=== PATIENT | female | born 1995 | race Caucasian/White ===

== ENCOUNTER 2018-04-30 05:38 | Emergency (ER) | payer OTHER ==
[2018-04-30 06:27] VITALS: BP 118/69
[2018-04-30] MEDS ORDERED: ACETAMINOPHEN 325 MG TABLET PO ONE (07:26)
[2018-04-30] MEDS ORDERED: IBUPROFEN 600 MG TABLET PO ONE (07:26)
--- NOTE | 2018-04-30 07:26 | ER Document Report ---
HPI - HPI Time Seen by Provider: 04/30/18 06:59 Pain Level: 5 Context: Patient is a 22-year-old female who presents the emergency department with a chief complaint of left ear pain. Her pain started this morning at 5:00 in the morning. She states, "it feels like my eardrum ruptured." She was diagnosed with the flu 2 days ago and otitis externa of the right ear. She has not taken any medication for the pain. She feels that the pain is radiating down her jaw towards her forehead. She has no other past medical history. - REPRODUCTIVE Reproductive: DENIES: : Past Medical History - General Information source: Patient - Social History Smoking Status: Unknown if Ever Smoked Family History: Reviewed & Not Pertinent Vertical Provider Document - INFECTION CONTROL TRAVEL OUTSIDE OF THE [place] IN LAST 30 DAYS: No - HEENT HEENT: Atraumatic, Tympanic Membrane Red - Exudate noted, Tympanic Membrane Bulging. negative: Pharyngeal Exudate - NECK Neck: Normal Inspection - RESPIRATORY Respiratory: Breath Sounds Normal - CARDIOVASCULAR Cardiovascular: Regular Rate, Regular Rhythm - MUSCULOSKELETAL/EXTREMETIES Musculoskeletal/Extremeties: FROM - NEURO Level of Consciousness: Awake, Alert, Appropriate - DERM Integumentary: Warm, Dry Course - Re-evaluation Re-evalutation: 04/30/18 07:27 Patient's physical exam is consistent with otitis media of the left side. She does have purulent drainage behind her tympanic membrane. She also has erythema to her tympanic membrane. I do not suspect mastoiditis. Verbal discharge instructions were given to the patient. They verbalized understanding. They are stable for discharge. - Vital Signs Vital signs: Temp Pulse Resp BP Pulse Ox 97.7 F 86 18 118/69 98 04/30/18 06:25 04/30/18 06:25 04/30/18 06:25 04/30/18 06:25 04/30/18 06:25 Discharge - Discharge Clinical Impression: Otitis media Qualifiers: Otitis media type: mucoid Chronicity: acute Laterality: left Qualified Code(s): H65.112 - Acute and subacute allergic otitis media (mucoid) (sanguinous) (serous), left ear Condition: Stable Disposition: HOME, SELF-CARE Additional Instructions: You have been diagnosed as having an ear infection. Please take amoxicillin t wice daily for 10 days. Please continue to take your medications even if you feel better. Follow-up with your primary care provider as needed. You can take 1000 mg of acetaminophen and 600 mg of ibuprofen every 6 hours as needed for your pain or fever. If your symptoms are worse, are unable to hear, or have any symptoms that are worrisome to you, please return to the emergency department. Prescriptions: RX: Amoxicillin Trihydrate [Amoxil 875 mg Tablet] 1 tab PO BID #20 tablet Referrals: RAE GALINDO [Primary Care Provider] - Follow up as needed
== END 2018-04-30 07:40 | disposition home or self-care (01) ==
LOC: ER 05:38
DX: H65.112 Acute and subacute allergic otitis media (mucoid) (sanguinous) (serous), left ear (principal); H92.02 Otalgia, left ear
CPT/HCPCS: 99282

== ENCOUNTER 2019-08-27 10:05 | Emergency (ER) | payer OTHER ==
[2019-08-27 10:10] VITALS: BP 114/62
[2019-08-27] MEDS ORDERED: NORMAL SALINE 1000 ML 1,000 ML IV ONE (10:14)
--- NOTE | 2019-08-27 10:14 | ER Document Report ---
ED Medical Screen (RME) - General Chief Complaint: Flank Pain Stated Complaint: FLANK PAIN/BACK SWELLING/PAINFUL URINATION Time Seen by Provider: 08/27/19 10:10 Primary Care Provider: RAE GALINDO [Primary Care Provider] - Follow up as needed Mode of Arrival: Ambulatory Information source: Patient Notes: 23-year-old female patient presenting to the emergency department chief complaint of dysuria and low back pain on the left side. Patient denies any fevers. She is 14 weeks . She reports nausea with vomiting but states that she has had vomiting during this however it has increased over the last 24 hours. She has not vomited today. No CVA tenderness on the left side. Tachycardic. I have greeted and performed a rapid initial assessment of this patient. A comprehensive ED assessment and evaluation of the patient, analysis of test results and completion of the medical decision making process will be conducted by additional ED providers. I have specifically instructed the patient or family members with the patient to immediately return to any nursing staff should anything change in the patient's condition or with their chief complaint. TRAVEL OUTSIDE OF THE [place] IN LAST 30 DAYS: No - Related Data Allergies/Adverse Reactions: No Known Allergies Allergy (Unverified 04/30/18 05:46) Past Medical History Neurological Medical History: Reports: Hx Migraine Renal/ Medical History: Denies: Hx Peritoneal Dialysis Physical Exam - Vital signs Vitals: Temp Pulse Resp BP Pulse Ox 98.9 F 113 H 20 114/62 99 08/27/19 10:09 08/27/19 10:09 08/27/19 10:09 08/27/19 10:09 08/27/19 10:09 Course - Vital Signs Vital signs: Temp Pulse Resp BP Pulse Ox 98.9 F 113 H 20 114/62 99 08/27/19 10:10 08/27/19 10:09 08/27/19 10:09 08/27/19 10:09 08/27/19 10:09 Doctor's Discharge - Discharge Referrals: RAE GALINDO [Primary Care Provider] - Follow up as needed
[2019-08-27] MEDS ORDERED: METOCLOPRAMIDE HCL INJ/PF 10 MG/2 ML SDV IV ONE (10:42)
--- NOTE | 2019-08-27 10:45 | ER Document Report ---
ED GI/ - General Chief Complaint: Flank Pain Stated Complaint: FLANK PAIN/BACK SWELLING/PAINFUL URINATION Time Seen by Provider: 08/27/19 10:10 Primary Care Provider: RAE GALINDO [Primary Care Provider] - Follow up as needed Mode of Arrival: Ambulatory Information source: Patient Notes: 23-year-old female with no previous medical problems who states that she is 13 weeks 6 days presents to the emergency room with intermittent left flank pain that started yesterday. Denies any trauma or injury. was able to sleep last night without difficulty woke up this morning is having worsening left flank and left side pain. Denies any weakness, also complains of worsening nausea and vomiting. States she had a normal ultrasound about 2 and half weeks ago at the [facility]. She denies fevers. States has pain after she finishes urination but not before or during. She denies any vaginal bleeding, vaginal discharge. She is a 3 para 1 with 1 . Took Tylenol about 1 hour prior to arrival with some relief of symptoms. TRAVEL OUTSIDE OF THE [place] IN LAST 30 DAYS: No - Related Data Allergies/Adverse Reactions: No Known Allergies Allergy (Unverified 04/30/18 05:46) Home Medications: wellbutrin Past Medical History - General Information source: Patient - Social History Smoking Status: Never Smoker Chew tobacco use (# tins/day): No Frequency of alcohol use: None Drug Abuse: None Family History: Reviewed & Not Pertinent Patient has homicidal ideation: No Neurological Medical History: Reports: Hx Migraine Renal/ Medical History: Denies: Hx Peritoneal Dialysis Review of Systems - Review of Systems Constitutional: No symptoms reported Cardiovascular: No symptoms reported Respiratory: No symptoms reported Gastrointestinal: No symptoms reported Genitourinary: Flank pain Female Genitourinary: . denies: Vaginal discharge, Vaginal bleeding Skin: No symptoms reported -: Yes All other systems reviewed and negative Physical Exam - Vital signs Vitals: Temp Pulse Resp BP Pulse Ox 98.9 F 113 H 20 114/62 99 08/27/19 10:09 08/27/19 10:09 08/27/19 10:09 08/27/19 10:08/27/19 10:09 - General General appearance: Appears well, Alert In distress: Mild - Respiratory Respiratory status: No respiratory distress Chest status: Nontender Breath sounds: Normal Chest palpation: Normal - Cardiovascular Rhythm: Tachycardia Heart sounds: Normal auscultation Murmur: No - Abdominal Inspection: Normal Distension: No distension Bowel sounds: Normal Tenderness: Tender - Over the suprapubic region there is mild tenderness on palpation. No: Guarding, Rebound Organomegaly: No organomegaly - Back Back: CVA tenderness - Right-sided. No: Vertebra tenderness - Neurological Neuro grossly intact: Yes Cognition: Normal Orientation: AAOx4 [place] Coma Scale Eye Opening: Spontaneous [place] Coma Scale Verbal: Oriented [place] Coma Scale Motor: Obeys Commands [place] Coma Scale Total: 15 Speech: Normal Motor strength normal: LUE, RUE, LLE, RLE Sensory: Normal - Skin Skin Temperature: Warm Skin Moisture: Dry Skin Color: Normal Course - Re-evaluation Re-evalutation: 08/27/19 10:44 Notified by nursing staff that patient is refusing her IV, IV fluids and IV medications. Spoke with the patient and counseled patient on the necessity for IV fluids, IV medications since patient is unable to tolerate anything p.o. and is having severe left flank pain she was counseled that she would need fluids and antiemetics as well as ultrasound. Patient is agreeable to IV, IV fluids, IV medications, ultrasounds. 08/27/19 11:20 Notified by nursing staff that patient is not in her room, ultrasounds looking for patient as well. Nurse asked staff members in triage and they state that they saw the patiently. Patient did not notify anyone that she was leaving. - Vital Signs Vital signs: Temp Pulse Resp BP Pulse Ox 98.9 F 113 H 20 114/62 99 08/27/19 10:10 08/27/19 10:09 08/27/19 10:09 08/27/19 10:09 08/27/19 10:09 - Laboratory Result Diagrams: 08/27/19 10:15 08/27/19 10:15 Laboratory results interpreted by me: 08/27/19 08/27/19 08/27/19 10:15 10:15 10:15 WBC 10.7 H Lymph % (Auto) 6.3 L Absolute Neuts (auto) 9.3 H Seg Neutrophils % 86.4 H Sodium 131.6 L Glucose 122 H AST 39 H Serum HCG, Qual POSITIVE H Urine Protein Urine Ketones 08/27/19 10:15 WBC Lymph % (Auto) Absolute Neuts (auto) Seg Neutrophils % Sodium Glucose AST Serum HCG, Qual Urine Protein 30 H Urine Ketones 20 H Discharge - Discharge Clinical Impression: Flank pain in patient, Eloped from emergency department Disposition: ELOPED Referrals: RAE GALINDO [Primary Care Provider] - Follow up as needed
[2019-08-27 10:46] LABS: ABSOLUTE LYMPHOCYTES (AUTO) 0.7 10^3/uL (0.5-4.7); ABSOLUTE MONOCYTES (AUTO) 0.7 10^3/uL (0.1-1.4); ABSOLUTE NEUT (AUTO) 9.3 10^3/uL (1.7-8.2); BASOPHILS % (AUTO) 0.1 % (0-2); EOSINOPHILS % (AUTO) 0.4 % (0-6); HEMATOCRIT 37.1 % (36.0-47.0); HEMOGLOBIN 13.2 g/dL (12.0-15.5); LYMPHOCYTES % (AUTO) 6.3 % (13-45); MEAN CORPUSCULAR HEMOGLOBIN 31.7 pg (27.0-33.4); MEAN CORPUSCULAR HGB CONC 35.6 g/dL (32.0-36.0); MEAN CORPUSCULAR VOLUME 89 fl (80-97); MONOCYTES % (AUTO) 6.8 % (3-13); PLATELET COUNT 216 10^3/uL (150-450); RED BLOOD COUNT 4.17 10^6/uL (3.72-5.28); RED CELL DISTRIBUTION WIDTH 13.3 % (11.5-14.0); SEGMENTED NEUTROPHILS % (AUTO) 86.4 % (42-78); TOTAL CELLS COUNTED % (AUTO) 100 %; WHITE BLOOD COUNT 10.7 10^3/uL (4.0-10.5)
[2019-08-27 10:54] LABS: APPEARANCE,URINE CLOUDY; BILIRUBIN,URINE NEGATIVE (NEGATIVE); COLOR,URINE YELLOW; GLUCOSE, URINE NEGATIVE (NEGATIVE); KETONES,URINE 20 mg/dL (NEGATIVE); LEUKOCYTE ESTERASE,URINE NEGATIVE (NEGATIVE); NITRITE,URINE NEGATIVE (NEGATIVE); PROTEIN,URINE 30 mg/dL (NEGATIVE); URINE SPECIFIC GRAVITY 1.016; UROBILINOGEN,URINE NEGATIVE mg/dL (<2.0)
[2019-08-27 11:03] LABS: ALBUMIN 3.7 g/dL (3.5-5.0); ALKALINE PHOSPHATASE 86 U/L (38-126); ANION GAP 8 (5-19); ASPARTATE AMINO TRANSFERASE 39 U/L (14-36); BILIRUBIN,TOTAL 0.8 mg/dL (0.2-1.3); BLOOD UREA NITROGEN 13 mg/dL (7-20); CALCIUM 8.9 mg/dL (8.4-10.2); CARBON DIOXIDE 26 mmol/L (22-30); CHLORIDE 98 mmol/L (98-107); GLUCOSE 122 mg/dL (75-110); POTASSIUM 3.9 mmol/L (3.6-5.0); TOTAL PROTEIN 6.8 g/dL (6.3-8.2)
== END 2019-08-27 11:19 | disposition left against medical advice (07) ==
LOC: ER 10:05
DX: O26.891 Other specified pregnancy related conditions, first trimester (principal); R10.9 Unspecified abdominal pain; R30.0 Dysuria; R00.0 Tachycardia, unspecified; R10.819 Abdominal tenderness, unspecified site; Z3A.13 13 weeks gestation of pregnancy; Z79.899 Other long term (current) drug therapy; Z53.20 Procedure and treatment not carried out because of patient's decision for unspecified reasons
CPT/HCPCS: 36415; 80053; 81001; 83690; 84703; 85025; 87086; 87088; 87186; 99281

== ENCOUNTER → 2019-11-07 | Outpatient (CLI) | payer SELFPAY ==
--- NOTE | 2019-11-07 16:14 | RADIOLOGY REPORT (SQ) ---
EXAM DESCRIPTION: U/S OB 14+ TRNABD 1GES W/O DOP IMAGES COMPLETED DATE/TIME: 11/07/2019 3:56 pm REASON FOR STUDY: Z34.82 ENCOUNTER FOR SUPRVSN OF NORMAL , SECOND TRIMESTER Z34.82 ENCOUNT ER FOR SUPRVSN OF NORMAL , SECOND TRI COMPARISON: None. TECHNIQUE: Static and Dynamic grayscale imaging performed of gravid uterus using transabdominal appr oach. Additional selected color Doppler and spectral images recorded. All stored on PACS. LIMITATIONS: None. FINDINGS: FETUSES SEEN:1 EGA: 24 weeks 1 day Calculated using BPD,FL,HC,AC documented on images. No discrepancy with clinical dates. CUAUHTEMOC: 02/26/2020 EFW: 667 grams PERCENTILE: 46 LVP: 4.4 x 10.5 cm PLACENTA: Anterior. GRADE: I PRESENTATION: Cephalic. ANATOMY: HEART RATE: 143 beats per minute. FOUR CHAMBER HEART: Visualized. THREE VESSEL CORD: Yes. CORD INSERTION: Visualized. KIDNEYS AND BLADDER: Visualized. Appear normal. STOMACH: Visualized. Appears normal. SPINE: Normal as visualized. BRAIN AND LATERAL VENTRICLES: Visualized. Appear normal. OTHER: No other significant finding. MATERNAL ADNEXA: Normal. CERVICAL LENGTH: 4.0 cm. Closed. OTHER: No other significant finding. IMPRESSION: LIVING INTRAUTERINE . ESTIMATED GESTATIONAL AGE 24 weeks 1 day. NO VISUALIZED ANOMALIES. Trimester of : Second trimester - 13 weeks 1 day to 27 weeks 6 days. TECHNICAL DOCUMENTATION: JOB ID: [id number] 2010 [employer]- All Rights Reserved Reading location - IP/workstation name: [email or web address]
== END ==
LOC: RAD 15:27
PROVIDERS: ATTEND Midwife
DX: Z34.82 Encounter for supervision of other normal pregnancy, second trimester (principal)
CPT/HCPCS: 76805

== ENCOUNTER 2020-01-18 14:56 | Outpatient (CLI) | payer SELFPAY ==
[2020-01-18 16:09] LABS: BACTERIA (WET MOUNT) 4+ BACTERIA SEEN; EPITHELIALS (WET MOUNT) 3+ EPITHELIALS SEEN; T.VAGINALIS (WET MOUNT) NO TRICHOMONAS SEEN; WBCS (WET MOUNT) 1+ WBCS SEEN; YEAST (WET MOUNT) BUDDING YEAST SEEN
[2020-01-18 16:47] LABS: APPEARANCE,URINE CLEAR; BILIRUBIN,URINE NEGATIVE (NEGATIVE); COLOR,URINE YELLOW; GLUCOSE, URINE NEGATIVE (NEGATIVE); KETONES,URINE NEGATIVE (NEGATIVE); LEUKOCYTE ESTERASE,URINE NEGATIVE (NEGATIVE); NITRITE,URINE NEGATIVE (NEGATIVE); PROTEIN,URINE NEGATIVE (NEGATIVE); URINE SPECIFIC GRAVITY 1.006; UROBILINOGEN,URINE NEGATIVE mg/dL (<2.0)
[2020-01-18 17:08] LABS: URINE BARBITURATES SCREEN NEGATIVE; URINE BENZODIAZEPINES SCREEN NEGATIVE; URINE COCAINE SCREEN NEGATIVE; URINE MARIJUANA (THC) SCREEN NEGATIVE; URINE METHADONE SCREEN NEGATIVE; URINE PHENCYCLIDINE SCREEN NEGATIVE
[2020-01-18 17:13] LABS: URINE AMPHETAMINES SCREEN UNCONFIRMED POSITIVE
[2020-01-18 17:41] LABS: CHLAM PCR NOT DETECTED (NOT DETECT)
--- NOTE | 2020-01-18 19:48 | Non Stress Test Report ---
Non Stress Test Datetime Report Generated by CPN: 01/18/2020 19:48 DEMOGRAPHIC EGA NST: 34.3 INDICATION Indication for Study (NST) Other: Provider Order, IUP 34.3 VITAL SIGNS Temperature - NST: 97.8 RESP - NST: 18 MONITORING Monitor Explained: Monitor Explained; Test Explained; Patient Verbalized Understanding Time on Monitor: 01/18/2020 16:19 Time off Monitor: 01/18/2020 16:56 NST Duration: 37 NST INTERVENTIONS NST Interventions: None Physician Notified NST: Dr. Roman BABY A: [id number] BABY A Movement : Present Contraction Frequency : None FHR Baseline : 125 Accelerations : 15X15 Decelerations : None Variability : Moderate 6-25bpm NST Review: Meets Criteria for Reactive NST NST Review and Verified By : Teagan Noyola RNC NST Results: Reactive NST REPORT Report Trigger: Send Report
== END 2020-01-18 18:00 | disposition home or self-care (01) ==
LOC: LC 14:56
PROVIDERS: ATTEND Obstetrics & Gynecology
DX: O98.813 Other maternal infectious and parasitic diseases complicating pregnancy, third trimester (principal); B37.9 Candidiasis, unspecified; O99.283 Endocrine, nutritional and metabolic diseases complicating pregnancy, third trimester; E86.0 Dehydration; Z3A.34 34 weeks gestation of pregnancy
CPT/HCPCS: 59025; 36415; 87210; 81001; 87081; 80307 ×2; 87491; 87591; G0480

== ENCOUNTER 2020-01-25 01:07 | Inpatient (IN) | payer SELFPAY ==
[2020-01-25] MEDS ORDERED: MISOPROSTOL 0.2 MG TABLET ONE (01:13)
[2020-01-25] MEDS ORDERED: OXYTOCIN 10 UNIT/ML VIAL ONE (01:13)
[2020-01-25] MEDS ORDERED: OXYTOCIN/0.9 % SODIUM CHLORIDE 0 UNIT/0 ML RTUINJ ONE (01:13)
[2020-01-25] MEDS ORDERED: LIDOCAINE 1% INJ-PF (10 MG/ML) 30 ML SDV ONE (01:13)
[2020-01-25] MEDS ORDERED: PROMETHAZINE HCL 25 MG SUPP.RECT PR PRN (01:33)
[2020-01-25] MEDS ORDERED: PROMETHAZINE HCL INJ 25 MG/1 ML VIAL IV PRN (01:33)
[2020-01-25] MEDS ORDERED: MAGNESIUM HYDROXIDE SUSP 30 ML UDCUP PO PRN (01:33)
[2020-01-25] MEDS ORDERED: GLYCERIN/WITCH HAZEL LEAF 1 EACH MED..WIPE TP PRN (01:33)
[2020-01-25] MEDS ORDERED: MEASLES,MUMPS&RUBELLA VACC/PF 0.5 ML VIAL SUBCUT PRN (01:33)
[2020-01-25] MEDS ORDERED: PSEUDOEPHEDRINE HCL 30 MG TABLET PO PRN (01:33)
[2020-01-25] MEDS ORDERED: NA PHOS,M-B/NA PHOS,DI-BA (ADULT) 133 ML ENEMA PR PRN (01:33)
[2020-01-25] MEDS ORDERED: ACETAMINOPHEN 325 MG TABLET PO PRN (01:33)
[2020-01-25] MEDS ORDERED: OXYTOCIN/0.9 % SODIUM CHLORIDE 30 UNIT/500 ML RTUINJ IV PRN (01:33)
[2020-01-25] MEDS ORDERED: DIBUCAINE 1% OINTMENT 28 GM TP PRN (01:33)
[2020-01-25] MEDS ORDERED: BENZOCAINE/MENTHOL AEROSOL SPRAY 56 ML TOP PRN (01:33)
[2020-01-25] MEDS ORDERED: ZOLPIDEM TARTRATE 5 MG TABLET PO PRN (01:33)
[2020-01-25] MEDS ORDERED: ACETAMINOPHEN 650 MG SUPP.RECT PR PRN (01:33)
[2020-01-25] MEDS ORDERED: DIPH/PERTUSS(ACELL)/TETANUS VAC/PF 0.5 ML SYR (>=10YO) IM PRN (01:33)
[2020-01-25] MEDS ORDERED: PROMETHAZINE HCL 25 MG TABLET PO PRN (01:33)
[2020-01-25] MEDS ORDERED: DIPHENHYDRAMINE HCL 25 MG CAPSULE PO PRN (01:33)
[2020-01-25] MEDS ORDERED: ACETAMINOPHEN WITH CODEINE #3 TABLET PO PRN ×2 (01:33)
--- NOTE | 2020-01-25 01:46 | Admission Physical ---
Datetime Report Generated by CPN: 01/25/2020 01:46 CURRENT ADMISSION Hx Assessment: The History has been Reviewed and is Current Chief Complaint: Uterine Contractions; Suspected Ruptured Membranes Chief Complaint Other: at 35.3 wks EGA in active labor with SROM at 0115 complicated by opiate dependence and substance abuse in Admit Impression : , Intrauterine ; Active Labor; Ruptured Membranes Admit Plan: Admit to Unit; Initiate Labor Protocol; Initiate Labor Protocol ALLERGIES Medication Allergies: No Known Allergies (04/30/2018) OBSTETRICAL HISTORY EDC: 02/26/2020 00:00 : 2 Para: 1 Term: 1 : 0 SAB: 0 IAB: 0 Ectopic: 0 Livin Cesareans: 0 VBACs: 0 Multiple Births: 0 SEE RECORDS Other Illicit Drugs: Yes Illicit Drug Comments: Used Heroin today PHYSICAL EXAM General: Normal HEENT: Normal Neurologic: Normal Thyroid: Normal Heart: Normal Lungs: Normal Breast: Normal Back: Normal Abdomen: Normal Genitourinary Exam: Normal Extremities: Normal DTRs: Normal Pelvic Type: Adequate Vital Signs: Reviewed VAGINAL EXAM Dilatation: 10 Effacement: 100 Station: 2 MEMBRANES Membranes: Intact FETUS A EGA: 35.3 Monitoring: External US FHR- Baseline: 130 Variability: Moderate 6-25bpm Accelerations: 15X15 Decelerations: None FHR Category: Category I Presentation: Vertex Admit Comment: at 35.3 wks EGA in active labor with SROM at 0115 complicated by opiate dependence and substance abuse in -Admit to LDR -RUptured in ER, clear -Reports heroine use early today. UDS, Hep C, Hep B and HIV pending -GBS negative -Hx one prior -Anticipate precipitous -Since no time for IV insertion have Pitocin 10mg IM available for post deliveryand will avoid IV unless needed INFORMED CONSENT Informed Consent Obtained: Vaginal Delivery; Vacuum/Forceps Assist; Risks, Benefits and Alternatives Discussed Signature: with User ID: Roscoe : with User ID: Roscoe
[2020-01-25 02:09] LABS: ABSOLUTE EOSINOPHILS # (AUTO) 0.2 10^3/uL (0.0-0.6); ABSOLUTE LYMPHOCYTES (AUTO) 1.6 10^3/uL (0.5-4.7); ABSOLUTE MONOCYTES (AUTO) 1.1 10^3/uL (0.1-1.4); ABSOLUTE NEUT (AUTO) 10.5 10^3/uL (1.7-8.2); BASOPHILS % (AUTO) 0.2 % (0-2); EOSINOPHILS % (AUTO) 1.2 % (0-6); HEMATOCRIT 37.4 % (36.0-47.0); HEMOGLOBIN 13.1 g/dL (12.0-15.5); LYMPHOCYTES % (AUTO) 12.2 % (13-45); MEAN CORPUSCULAR HGB CONC 35.2 g/dL (32.0-36.0); MEAN CORPUSCULAR VOLUME 91 fl (80-97); PLATELET COUNT 259 10^3/uL (150-450); RED CELL DISTRIBUTION WIDTH 14.5 % (11.5-14.0); SEGMENTED NEUTROPHILS % (AUTO) 78.4 % (42-78); TOTAL CELLS COUNTED % (AUTO) 100 %; WHITE BLOOD COUNT 13.4 10^3/uL (4.0-10.5)
--- NOTE | 2020-01-25 02:38 | Birth Certificate Data ---
Cert Data Datetime Report Generated by CPN: 01/25/2020 02:38 CERTIFICATE DATA 47a. Care: No (01/18/2020 15:31:Mady Bridges RN) 48a. Number of Prev Live Births: 1 (01/18/2020 15:31:Mady Bridges RN) 48b. Now Livin (01/18/2020 15:31:Bonnie Pugh RN) 48c. Live Births Now : 0 (01/18/2020 15:31:QS system process) 48e. Losses: 0 (01/18/2020 15:31:Mady Bridges RN) RISK FACTORS IN THIS 49c. Previous Births: 0 (01/18/2020 15:31:Mady Cyrus, RN) 49f. Previous Cesareans: 0 (01/18/2020 15:31:Mady Barbiehefka, RN) Mother's Height 50b. Height Inches: 64 (01/18/2020 15:30:QS system process) Mother's Weight 51b. Weight at Delivery (lbs): 143 (01/18/2020 15:30:QS system process) Infections Present/Treated Results this Hospital Visit : Negative (01/18/2020 15:31:Mady Bridges RN) Results this Hospital Visit: Negative (01/18/2020 15:31:Mady Bridges RN) Onset of Labor 56a. PROM >12 Hrs: 0.27 (01/18/2020 15:31:QS system process) 56b. Precipitous Labor <3 Hrs: 2 (01/18/2020 15:31:QS system process) 56c. Prolonged Labor > 20 Hrs: 2 (01/18/2020 15:31:QS system process) 57a. Induction of Labor: N/A (01/18/2020 15:31:Mady Bridges RN) 57c. Non-Vertex Presentation A: Vertex (01/18/2020 15:31:Mady Bridges RN) 57d. Steroids - Lung Mat: None (01/18/2020 15:31:Mady Bridges RN) 57d. Steroids - Lung Mat: Not Applicable (01/18/2020 15:31:Mady Bridges RN) 57f. Mat [place] or Temp >100.4: 98.9 (01/18/2020 15:31:Sadia Wolfe RN) 57g. Moderate/Heavy Meconium: Moderate Meconium (01/18/2020 15:31:Sadia Wolfe RN) 57h. Intolerance of Labor: N/A (01/18/2020 15:31:Mady Bridges RN) 57i. Epidural/Spinal Anesthesia: None (01/18/2020 15:31:Mady Bridges RN) Method of Delivery 58a. Forceps - Unsuccessful A: N/A (01/18/2020 15:31:Mayd Bridges RN) 58b. Vacuum - Unsuccessful A: N/A (01/18/2020 15:31:Mady Bridges RN) 58c. Presentation at 58c. Presentation at - A : Vertex (01/18/2020 15:31:Mady Bridges RN) 58c. Presentation at - A : N/A (01/18/2020 15:31:Mady Bridges RN) 58c. Presentation at - A : Cephalic (01/18/2020 15:31:Mady Bridges RN) Final Route and Method of Del 58d. Baby A Route/Delivery: Vaginal (01/18/2020 15:31:Mady Bridges RN) 58e. Trial of Labor Attempted: No (01/18/2020 15:31:Mady Bridges RN) 58e. Trial of Labor Attempted A: N/A (01/18/2020 15:31:Mady Bridges RN) 58e. Trial of Labor Attempted B: N/A (01/18/2020 15:31:Mady Bridges RN) Maternal Morbidity 59b. 3rd or 4th Degree Lacs: None (01/18/2020 15:31:Mady Bridges RN) Birthweight Baby A: 2462 (01/18/2020 15:31:Sadia Wolfe RN) 60a. Pounds : 5 (01/18/2020 15:31:QS system process) 60b. Ounces: 7 (01/18/2020 15:31:QS system process) 61. GA at Delivery Baby A: 35.3 (01/18/2020 15:31:Mady Bridges RN) : Late - 34- 36.6 Weeks (01/18/2020 15:31:QS system process) 62a. 5 Minute Baby A: 9 (01/18/2020 15:31:QS system process)
--- NOTE | 2020-01-25 02:38 | Delivery Summary ---
Del Sum A-C Datetime Report Generated by CPN: 01/25/2020 02:38 DELIVERY PERSONNEL DELIVERY PERSONNEL: [id number] Delivery Doctor:: Kaity Roman MD Labor and Delivery Nurse:: Sadia Wolfe RNmedical representative Nurse:: Mady Bridges RN Nursery Nurse:: Guera Chow RN MSN Nursery Nurse:: Penny Clay RN Middle [employer] Band Teacher/CLINICAL CARE LEADER: Danika Manley, ST MATERNAL INFORMATION Delivery Anesthesia: None Medications After Delivery: Pitocin 10 Units IM Delivery QBL: 100 Maternal Complications: Precipitous Labor (<3hrs); Premature Rupture of Membranes; Other Complication Details: Drug use, no care Provider Comments: Called to patients room as she was complete/+2 with urge to push.Patient pushed through 2-3 contractions and delivered a viable male infant over an intact perineum. He was vigorously crying at delivery. After doubly clamping cord and cutting-infant placed skin to skin. Both stable. LABOR SUMMARY EDC: 02/26/2020 00:00 No. Babies in Womb: 1 Attempted: No Labor Anesthesia: None LABOR INFORMATION Reason for Induction: Not Applicable Onset of Labor: 01/24/2020 22:48 Complete Dilatation: 01/25/2020 01:28 Oxytocin: N/A Group B Beta Strep: 1 NO GROUP B STREPTOCOCCUS RECOVERED Antibiotics # of Doses: n/a Name of Antibiotic Given: n/a Steroids Given: None Reason Steroids Not Administered: Not Applicable MEMBRANES Membranes Rupture Method: Spontaneous Rupture of Membranes: 01/25/2020 01:04 Length of Rupture (hr): 0.27 Amniotic Fluid Color: Moderate Meconium Amniotic Fluid Amount: Large Amniotic Fluid Odor: Normal STAGES OF LABOR Stage 1 hr: 2 Stage 1 min: 40 Stage 2 hr: 0 Stage 2 min: -8 Stage 3 hr: 0 Stage 3 min: 8 Total Time in Labor hr: 2 Total Time in Labor min: 40 VAGINAL DELIVERY Episiotomy: None Laceration #1: None Laceration Extension #1: N/A Laceration Repair: Not Applicable Sponge Count Correct: N/A Sharps Count Correct: N/A CSECTION DELIVERY Primary Indication: N/A CSection Incision: N/A BABY A INFORMATION Delivery Date/Time: 01/25/2020 01:20 Method of Delivery: Vaginal Nurse Controlled Delivery: No Born in Route : No : N/A Forceps: N/A Vacuum Extraction: N/A Shoulder Dystocia : No PRESENTATION/POSITION BABY A Presentation: Cephalic Cephalic Presentation: Vertex Vertex Position: Left Occipital Anterior Breech Presentation: N/A PLACENTA INFORMATION BABY A Placenta Delivery Time : 01/25/2020 01:28 Placenta Method of Delivery: Spontaneous Placenta Status: Delivered SCORES BABY A Heart Rate 1 min: >100 bpm Resp Effort 1 min: Slow, Irregular Reflex Irritability 1 min: Cough or Sneeze or Pulls Away Muscle Tone 1 min: Some Flexion of Extremities Color 1 min: Body [place], Extremities Blue SCORE 1 MIN: 7 Heart Rate 5 min: >100 bpm Resp Effort 5 min: Good Cry Reflex Irritability 5 min: Cough or Sneeze or Pulls Away Muscle Tone 5 min: Active Motion Color 5 min: Body [place], Extremities Blue SCORE 5 MIN: 9 INFANT INFORMATION BABY A Gestational Age at Delivery: 35.3 Gestational Status: Late - 34- 36.6 Weeks Outcome : Liveborn Condition : Stable Infant Sex: Male IDENTIFICATION BABY A Verification Date/Time: 01/25/2020 01:27 ID Band Number: [id number] Mother's Name Verified: Yes Infant RN Verifying Infant: D Bellavance RN/S Green ST WEIGHT/LENGTH BABY A Birthweight (gm): 2462 Infant Weight (lb): 5 Weight (oz): 7 Infant Length (in): 19.00 Length (cm): 48.26 CORD INFORMATION BABY A No. Cord Vessels: 3 Nuchal Cord : N/A Cord Blood Taken: Yes-For Eval (Mom's Blood Type - or O+) Infant Suction: Mouth; Nose ASSESSMENT BABY A Respirations: Appears Normal Skin to Skin: Yes Bale Piler/ALS Called : No BABY B INFORMATION : N/A SIGNATURES Signature: with User ID: Roscoe : with User ID: Roscoe
[2020-01-25] MEDS ORDERED: IBUPROFEN 800 MG TABLET PO SCH (06:00)
[2020-01-25] MEDS ORDERED: FAMOTIDINE 20 MG TABLET PO SCH (10:00)
[2020-01-25] MEDS ORDERED: DOCUSATE SODIUM 100 MG CAPSULE PO SCH (10:00)
[2020-01-25] MEDS ORDERED: PRENATAL VITAMIN W DHA CAPSULE PO SCH (10:00)
[2020-01-25] MEDS ORDERED: FERROUS SULFATE 325 MG TABLET PO SCH (10:00)
[2020-01-25] MEDS ORDERED: SENNOSIDES/DOCUSATE 8.6-50 MG 1 EACH TABLET PO SCH (10:00)
[2020-01-25 10:25] LABS: APPEARANCE,URINE SLIGHTLY-CLOUDY; BILIRUBIN,URINE NEGATIVE (NEGATIVE); COLOR,URINE YELLOW; GLUCOSE, URINE NEGATIVE (NEGATIVE); KETONES,URINE NEGATIVE (NEGATIVE); LEUKOCYTE ESTERASE,URINE SMALL (NEGATIVE); NITRITE,URINE NEGATIVE (NEGATIVE); PROTEIN,URINE 100 mg/dL (NEGATIVE); URINE SPECIFIC GRAVITY 1.018; UROBILINOGEN,URINE NEGATIVE mg/dL (<2.0)
[2020-01-25 10:43] LABS: URINE BARBITURATES SCREEN NEGATIVE; URINE BENZODIAZEPINES SCREEN NEGATIVE; URINE COCAINE SCREEN NEGATIVE; URINE MARIJUANA (THC) SCREEN NEGATIVE; URINE METHADONE SCREEN NEGATIVE; URINE PHENCYCLIDINE SCREEN NEGATIVE
--- NOTE | 2020-01-25 11:31 | PDOC PROGRESS REPORT ---
Subjective-OB Progress Note for:: 01/25/20 Subjective: Pt doing well. She is <12 from . She reports feeling good, voiding well, reg diet and light bleeding that has not even soaked a pad. Her baby is going to be transferred today to [facility] for surgery and Caitlyn would like to also be discharged so she can go with the baby. Physical Exam (OB) Vital Signs: Temp Pulse Resp BP Pulse Ox 98.1 F 74 18 124/62 100 01/25/20 08:10 01/25/20 08:10 01/25/20 08:10 01/25/20 08:10 01/25/20 08:10 Intake & Output 01/24/20 01/25/20 01/26/20 06:59 06:59 06:59 Intake Total 150 Balance 150 Weight 64.1 kg - Maternal Morbidity 59. Maternal Morbidity (serious complications experinced by the mother associated with labor and delivery: None of the above - Lochia Lochia Amount: Scant < 10 ml Lochia Color: Rubra/Red Objective-Diagnostic Laboratory: 01/25/20 01:50 01/25/20 01/25/20 01/25/20 01:50 01:50 09:50 WBC 13.4 H RBC 4.10 Hgb 13.1 Hct 37.4 MCV 91 MCH 32.0 MCHC 35.2 RDW 14.5 H Plt Count 259 Seg Neutrophils % 78.4 H Urine Color YELLOW Urine Appearance SLIGHTLY-CLOUDY Urine pH 8.0 Ur Specific [place] 1.018 Urine Protein 100 H Urine Glucose (UA) NEGATIVE Urine Ketones NEGATIVE Urine Blood MODERATE H Urine Nitrite NEGATIVE Ur Leukocyte Esterase SMALL H Urine WBC (Auto) 9 Urine RBC (Auto) >182 Blood Type O POSITIVE Antibody Screen NEGATIVE Assessment and Plan(PN) - Assessment and Plan (1) Vaginal delivery Is this a current diagnosis for this admission?: Yes (2) Substance abuse affecting , antepartum Is this a current diagnosis for this admission?: Yes (3) Heroin abuse affecting Qualifiers: Trimester: third trimester Qualified Code(s): O99.323 - Drug use complicating , third trimester; F11.10 - Opioid abuse, uncomplicated Is this a current diagnosis for this admission?: Yes (4) Meconium in amniotic fluid Is this a current diagnosis for this admission?: Yes - Time Spent with Patient Time with patient: Less than 15 minutes Medications reviewed and adjusted accordingly: Yes - Disposition Anticipated Discharge Disposition: Home, Self Care Anticipated Discharge Timeframe: within 24 hours
--- NOTE | 2020-01-25 11:34 | PDOC DISCHARGE SUMMARY ---
Impression - Admit/DC Date/PCP Admission Date/Primary Care Provider: 01/25/20 01:17 COLUMBA PIMENTEL CNM Discharge Date: 01/25/20 - Discharge Diagnosis (1) Vaginal delivery Is this a current diagnosis for this admission?: Yes (2) Substance abuse affecting , antepartum Is this a current diagnosis for this admission?: Yes (3) Heroin abuse affecting Is this a current diagnosis for this admission?: Yes (4) Meconium in amniotic fluid Is this a current diagnosis for this admission?: Yes - Additional Information Resuscitation Status: Full Code Discharge Diet: Regular Discharge Activity: Balance Activity w/Rest, Pelvic Rest Referrals: COLUMBA PIMENTEL CNM [Primary Care Provider] - Prescriptions: Ibuprofen [Motrin 800 mg Tablet] 800 mg PO Q8 #60 tablet Home Medications: Prenat 115/Iron Fum/Folic/Dss [ 19 Tablet] 1 each PO DAILY 01/18/20 Ibuprofen [Motrin 800 mg Tablet] 800 mg PO Q8 #60 tablet 01/25/20 HPI Gestational Age: 35.3 Reason(s) for Admission: Onset of Labor, PROM, Labor Procedures: NST Intrapartum Procedure(s): Spontaneous Vaginal Delivery Hospital Course 59. Maternal Morbidity (serious complications experinced by the mother associated with labor and delivery: None of the above Results Laboratory Results: WBC 13.4 10^3/uL (4.0-10.5) H 01/25/20 01:50 RBC 4.10 10^6/uL (3.72-5.28) 01/25/20 01:50 Hgb 13.1 g/dL (12.0-15.5) 01/25/20 01:50 Hct 37.4 % (36.0-47.0) 01/25/20 01:50 MCV 91 fl (80-97) 01/25/20 01:50 MCH 32.0 pg (27.0-33.4) 01/25/20 01:50 MCHC 35.2 g/dL (32.0-36.0) 01/25/20 01:50 RDW 14.5 % (11.5-14.0) H 01/25/20 01:50 Plt Count 259 10^3/uL (150-450) 01/25/20 01:50 Lymph % (Auto) 12.2 % (13-45) L 01/25/20 01:50 Mckenzie % (Auto) 8.0 % (3-13) 01/25/20 01:50 Eos % (Auto) 1.2 % (0-6) 01/25/20 01:50 Baso % (Auto) 0.2 % (0-2) 01/25/20 01:50 Absolute Neuts (auto) 10.5 10^3/uL (1.7-8.2) H 01/25/20 01:50 Absolute Lymphs (auto) 1.6 10^3/uL (0.5-4.7) 01/25/20 01:50 Absolute Monos (auto) 1.1 10^3/uL (0.1-1.4) 01/25/20 01:50 Absolute Eos (auto) 0.2 10^3/uL (0.0-0.6) 01/25/20 01:50 Absolute Basos (auto) 0.0 10^3/uL (0.0-0.2) 01/25/20 01:50 Seg Neutrophils % 78.4 % (42-78) H 01/25/20 01:50 Urine Color YELLOW 01/25/20 09:50 Urine Appearance SLIGHTLY-CLOUDY 01/25/20 09:50 Urine pH 8.0 (5.0-9.0) 01/25/20 09:50 Ur Specific [place] 1.018 01/25/20 09:50 Urine Protein 100 mg/dL (NEGATIVE) H 01/25/20 09:50 Urine Glucose (UA) NEGATIVE mg/dL (NEGATIVE) 01/25/20 09:50 Urine Ketones NEGATIVE mg/dL (NEGATIVE) 01/25/20 09:50 Urine Blood MODERATE (NEGATIVE) H 01/25/20 09:50 Urine Nitrite NEGATIVE (NEGATIVE) 01/25/20 09:50 Urine Bilirubin NEGATIVE (NEGATIVE) 01/25/20 09:50 Urine Urobilinogen NEGATIVE mg/dL (<2.0) 01/25/20 09:50 Ur Leukocyte Esterase SMALL (NEGATIVE) H 01/25/20 09:50 Urine WBC (Auto) 9 /HPF 01/25/20 09:50 Urine RBC (Auto) >182 /HPF 01/25/20 09:50 Squamous Epi Cells Auto 1 /HPF 01/25/20 09:50 Urine Mucus (Auto) FEW /LPF 01/25/20 09:50 Urine Ascorbic Acid NEGATIVE (NEGATIVE) 01/25/20 09:50 Urine Opiates Screen UNCONFIRMED POSITIVE 01/25/20 09:50 Urine Methadone Screen NEGATIVE 01/25/20 09:50 Ur Barbiturates Screen NEGATIVE 01/25/20 09:50 Ur Phencyclidine Scrn NEGATIVE 01/25/20 09:50 Ur Amphetamines Screen 01/25/20 09:50 U Benzodiazepines Scrn NEGATIVE 01/25/20 09:50 Urine Cocaine Screen NEGATIVE 01/25/20 09:50 U Marijuana (THC) Screen NEGATIVE 01/25/20 09:50 RPR NONREACTIVE (NONREACTIVE) 01/25/20 01:50 HIV 1&2 Antibody NEGATIVE (NEGATIVE) 01/25/20 01:50 Rubella IgG Antibody 5.06 IU/mL 01/25/20 01:50 Rubella IgG Ab Interp NEGATIVE 01/25/20 01:50 Blood Type O POSITIVE 01/25/20 01:50 Antibody Screen NEGATIVE 01/25/20 01:50 Plan Plan of Treatment: early discharge to allow mother to go to [facility] with her baby. She was instructed to f/u at [facility] in 4 wks for PPCK and contraception Time Spent: Less than 30 Minutes
[2020-01-25 12:53] VITALS: BP 118/71
[2020-01-26 07:20] LABS: HEPATITS B SURFACE ANTIGEN Negative (Negative)
[2020-01-29 12:36] LABS: HEPATITIS C QUANTITATION HCV Not Detected IU/mL (.)
== END 2020-01-25 13:20 | disposition home or self-care (01) | DRG 806 ==
LOC: LC 01:07 → LR 01:17 → 2S 03:39
PROVIDERS: ADMIT Obstetrics & Gynecology; ATTEND Obstetrics & Gynecology
PROC: 10E0XZZ Delivery of Products of Conception, External Approach (ICD-10-PCS; principal; 2020-01-25)
DX: O60.14X0 Preterm labor third trimester with preterm delivery third trimester, not applicable or unspecified (principal); O99.324 Drug use complicating childbirth; Z37.0 Single live birth; F11.20 Opioid dependence, uncomplicated; F15.10 Other stimulant abuse, uncomplicated; O62.3 Precipitate labor; O77.0 Labor and delivery complicated by meconium in amniotic fluid; Z3A.35 35 weeks gestation of pregnancy
CPT/HCPCS: 36415; 80307; 80361; 81001; 85025; 86592; 86701; 86762; 86850; 86900; 86901; 87340; 87522; 88307; G0480; J2590; J3490